=== PATIENT | female | born 1940 | race Caucasian/White ===

== ENCOUNTER 2019-10-13 11:20 | Outpatient (CLI) | payer MEDICARE | END 2019-10-13 23:59 | disposition home or self-care (01) | LOC: ROC 11:20 | PROVIDERS: ATTEND Radiology Radiation Oncology | DX: C50.919 Malignant neoplasm of unspecified site of unspecified female breast (principal) | CPT/HCPCS: G0463 ==

== ENCOUNTER 2019-11-07 21:30 | Observation (INO) | payer MEDICARE ==
[~2019-11-07] VITALS: Ht 162.6 cm; Wt 64.6 kg
--- NOTE | 2019-11-07 21:51 | NUR ---
79Y F BIB EMS FROM HOME, PT HAD SUDDEN ONSET OF ABD PAIN WITH ONE EPISODE OF LOOSE STOOL AND VOMITING. PT REPORTS GENERALIZED WEAKNESS WORSE THAN HER BASELINE WELL. PT FAMILY AT BEDSIDE DENIES RECENT ILLNESS. PT CONNECTED TO MONITORING TENISHA LOMBARDO
[2019-11-07] MEDS ORDERED: MAALOX/HYOSCYAMINE/LIDOCAINE 45 ML BTL ONE (21:59)
[2019-11-07] MEDS ORDERED: ONDANSETRON 2MG/ML, 2ML ONE (21:59)
[2019-11-07] MEDS: ONDANSETRON 2MG/ML, 2ML IVPush ONE ×2 (22:00→22:02)
[2019-11-07] MEDS: SODIUM CHLORIDE FLUSH 10ML SYR IVF ONE (22:00)
--- NOTE | 2019-11-07 22:00 | NUR ---
PT PLACED ON CONTACT PRECAUTIONS, PER PT REPORT OF LOOSE STOOL.
[2019-11-07 22:03] LABS: MEAN CORPUSCULAR HEMOGLOBIN 26.1 pg (27.0-34.8); MEAN CORPUSCULAR VOLUME 81.6 fL (80-100); MEAN PLATELET VOLUME 10.1 fL (7.4-10.4); PLATELET COUNT 285 x10^3/uL (130-400); RED BLOOD COUNT 5.45 x10^6/uL (3.82-5.3); RED CELL DISTRIBUTION WIDTH 17.1 % (9.6-15.2)
[2019-11-07] MEDS: MAALOX/HYOSCYAMINE/LIDOCAINE 45 ML BTL PO ONE ×2 (22:03→22:34)
[2019-11-07 22:09] LABS: ALANINE AMINOTRANSFERASE 24 U/L (12-78); ALBUMIN 4.2 g/dL (3.4-5.0); ANION GAP 8 mmol/L (5-15); CALCIUM 9.5 mg/dL (8.5-10.1); CHLORIDE 107 mmol/L (98-107); CREATININE 0.71 mg/dL (0.55-1.02)
[2019-11-07 22:12] LABS: ALKALINE PHOSPHATASE 73 U/L (45-117); BILIRUBIN,TOTAL 0.5 mg/dL (0.2-1.0); TOTAL PROTEIN 8.1 g/dL (6.4-8.2)
[2019-11-07 22:54] LABS: INTERNATIONAL NORMALIZED RATIO 4.44 (0.93-1.1)
[2019-11-07 22:55] LABS: BASOPHILS # (AUTO) 0.02 x10^3/uL (0-0.1); BASOPHILS % (AUTO) 0 % (0-1); EOSINOPHILS # (AUTO) 0.06 x10^3/uL (0-0.4); EOSINOPHILS % (AUTO) 0 % (1-7); LYMPHOCYTES # (AUTO) 0.97 x10^3/uL (1-3.4); LYMPHOCYTES % (AUTO) 4 % (22-44); MD SCAN; MONOCYTES # (AUTO) 2.02 x10^3/uL (0.2-0.8); MONOCYTES % (AUTO) 9 % (2-9); NEUTROPHILS # (AUTO) 19.72 x10^3/uL (1.8-6.8); NEUTROPHILS % (AUTO) 87 % (42-75)
[2019-11-07 22:58] LABS: PROTHROMBIN TIME 47.8 Seconds (9.6-11.5)
--- NOTE | 2019-11-07 23:00 | NUR ---
DUE TO PROLAPSE, UNABLE TO GET CLEAN SAMPLE. UPDATED
[2019-11-07] MEDS ORDERED: ANAS1TAB49 PO (23:27)
[2019-11-07] MEDS ORDERED: POTA10PI PO (23:28)
[2019-11-07] MEDS ORDERED: FURO20TA3 PO (23:28)
[2019-11-07] MEDS ORDERED: ONGLIZA PO (23:28)
[2019-11-07] MEDS ORDERED: ASCO1TAB2 PO (23:28)
[2019-11-07] MEDS ORDERED: DILT180C53 PO (23:28)
[2019-11-07] MEDS ORDERED: WARF2.5T32 PO (23:28)
[2019-11-07] MEDS ORDERED: LISI-167 PO (23:28)
[2019-11-07] MEDS ORDERED: UBID100C41 PO (23:28)
[2019-11-07] MEDS ORDERED: GLIM4TAB8 PO (23:28)
[2019-11-07] MEDS ORDERED: METF500T17 PO ×2 (23:28)
[2019-11-07] MEDS ORDERED: EMPA10TA PO (23:28)
[2019-11-07] MEDS ORDERED: CALCIUM (23:28)
[2019-11-07] MEDS ORDERED: ROSU40TA PO (23:28)
--- NOTE | 2019-11-07 23:49 | NUR ---
PT RESTING ON GUAWA, FAMILY AT BEDSIDE. NADN. AWAITNG ROOM UPSTAIRS
--- NOTE | 2019-11-07 23:57 | NUR ---
REPORT CALLED TO FLOOR RN ALL QUESTIONS ADDRESSED, PT READY FOR TRANSPORT TO FLOOR
[2019-11-08 00:30] VITALS: BP 135/67
[2019-11-08] MEDS: JARDIANCE MC SCH ×2 (01:00→09:00)
[2019-11-08] MEDS ORDERED: SODIUM CHLORIDE 0.9% 1,000 ML IV SCH (03:00)
[2019-11-08 05:43] VITALS: BP 132/76
[2019-11-08 08:34] VITALS: BP 151/83
[2019-11-08] MEDS ORDERED: DILTIAZEM CD 180 MG CAP.ER.24H PO SCH (09:00)
[2019-11-08] MEDS ORDERED: FUROSEMIDE 20 MG TABLET PO SCH (09:00)
[2019-11-08] MEDS ORDERED: TEMPLATE NON-FORMULARY MED. (Ubidecarenone** (Co Q-10**) 300 MG) PO SCH (09:00)
[2019-11-08] MEDS ORDERED: Empagliflozin (Jardiance) 10 MG) PO SCH (09:00)
[2019-11-08] MEDS ORDERED: GLIMEPIRIDE 4 MG TABLET PO SCH (09:00)
[2019-11-08] MEDS ORDERED: ANASTROZOLE 1 MG TABLET PO SCH (09:00)
[2019-11-08] MEDS ORDERED: POTASSIUM CHLORIDE 10 MEQ TABLET.ER PO SCH (09:00)
[2019-11-08] MEDS ORDERED: LINAGLIPTIN 5 MG TAB PO SCH (09:00)
[2019-11-08] MEDS ORDERED: LISINOPRIL 10 MG TABLET PO SCH (09:00)
[2019-11-08] MEDS ORDERED: metFORMIN 500 MG TABLET PO SCH (09:00)
[2019-11-08 11:27] LABS: ALANINE AMINOTRANSFERASE 22 U/L (12-78); ALBUMIN 3.8 g/dL (3.4-5.0); ANION GAP 9 mmol/L (5-15); CALCIUM 8.9 mg/dL (8.5-10.1); CHLORIDE 104 mmol/L (98-107); CREATININE 0.65 mg/dL (0.55-1.02)
[2019-11-08 11:30] LABS: ALKALINE PHOSPHATASE 68 U/L (45-117); BILIRUBIN,TOTAL 0.6 mg/dL (0.2-1.0); TOTAL PROTEIN 7.4 g/dL (6.4-8.2)
[2019-11-08 12:21] LABS: BASOPHILS # (AUTO) 0.04 x10^3/uL (0-0.1); BASOPHILS % (AUTO) 0 % (0-1); EOSINOPHILS % (AUTO) 1 % (1-7); LYMPHOCYTES # (AUTO) 1.86 x10^3/uL (1-3.4); LYMPHOCYTES % (AUTO) 16 % (22-44); MD NO; MEAN CORPUSCULAR HEMOGLOBIN 26.1 pg (27.0-34.8); MEAN CORPUSCULAR HGB CONC 31.5 g/dL (32.4-35.8); MEAN CORPUSCULAR VOLUME 82.9 fL (80-100); MEAN PLATELET VOLUME 9.8 fL (7.4-10.4); MONOCYTES % (AUTO) 9 % (2-9); NEUTROPHILS # (AUTO) 8.66 x10^3/uL (1.8-6.8); NEUTROPHILS % (AUTO) 74 % (42-75); PLATELET COUNT 292 x10^3/uL (130-400); RED BLOOD COUNT 5.04 x10^6/uL (3.82-5.3); RED CELL DISTRIBUTION WIDTH 17.6 % (9.6-15.2)
[2019-11-08 12:24] LABS: INTERNATIONAL NORMALIZED RATIO 4.1 (0.93-1.1); PROTHROMBIN TIME 44.1 Seconds (9.6-11.5)
[2019-11-08 13:49] VITALS: BP 125/74
[2019-11-08] MEDS ORDERED: LISI-167 PO (14:44)
[2019-11-08 15:13] VITALS: BP 137/77
[2019-11-08] MEDS ORDERED: ATORVASTATIN 80 MG TABLET PO SCH (21:00)
== END 2019-11-08 16:15 | disposition home or self-care (01) ==
LOC: ED 23:03 → INTOOBSV 23:50 → EDIP 23:50 → 4NW 11-08 00:34
PROVIDERS: ADMIT Internal Medicine; ATTEND Family Medicine
DX: A08.4 Viral intestinal infection, unspecified (principal); E86.0 Dehydration; D68.59 Other primary thrombophilia; I10 Essential (primary) hypertension; E78.5 Hyperlipidemia, unspecified; D72.829 Elevated white blood cell count, unspecified; E11.9 Type 2 diabetes mellitus without complications; Z79.01 Long term (current) use of anticoagulants; J96.11 Chronic respiratory failure with hypoxia; Z85.3 Personal history of malignant neoplasm of breast; Z88.0 Allergy status to penicillin; Z88.2 Allergy status to sulfonamides
CPT/HCPCS: 36415; 80053; 83690; 85025; 85610; 96361; 96374; 99284; G0378; J2405; J7030

== ENCOUNTER → 2019-12-10 | Outpatient (CLI) | payer MEDICARE ==
[~2019-12-10] MED LIST: ANAS1TAB49 PO; ASCO1TAB2 PO; CALCIUM; DILT180C53 PO; EMPA10TA PO; FURO20TA3 PO; GLIM4TAB8 PO; LISI-167 PO; METF500T17 PO; ONGLIZA PO; POTA10PI PO; ROSU40TA PO; UBID100C41 PO; WARF2.5T32 PO
== END | disposition home or self-care (01) ==
LOC: CFH 11:32
PROVIDERS: ATTEND Internal Medicine Medical Oncology
DX: C50.412 Malignant neoplasm of upper-outer quadrant of left female breast (principal); C50.111 Malignant neoplasm of central portion of right female breast; C50.911 Malignant neoplasm of unspecified site of right female breast; R91.8 Other nonspecific abnormal finding of lung field; J98.4 Other disorders of lung; N63.20 Unspecified lump in the left breast, unspecified quadrant
CPT/HCPCS: 71250; 76642

== ENCOUNTER → 2020-02-10 | Outpatient (CLI) | payer MEDICARE ==
[~2020-02-10] MED LIST changes: +OMNIPAQUE 350 MG/ML, 100ML BOTTLE ONE
== END | disposition home or self-care (01) ==
LOC: CFH 12:17
PROVIDERS: ATTEND Internal Medicine Medical Oncology
DX: I08.2 Rheumatic disorders of both aortic and tricuspid valves (principal); J98.4 Other disorders of lung; I10 Essential (primary) hypertension; E78.5 Hyperlipidemia, unspecified; E11.9 Type 2 diabetes mellitus without complications; Z85.41 Personal history of malignant neoplasm of cervix uteri
CPT/HCPCS: 71275; 93306; Q9967

== ENCOUNTER → 2020-10-18 | Outpatient (CLI) | payer MEDICARE ==
[~2020-10-18] MED LIST changes: -OMNIPAQUE 350 MG/ML, 100ML BOTTLE ONE
== END | disposition home or self-care (01) ==
LOC: CVU 12:03
PROVIDERS: ATTEND Internal Medicine Cardiovascular Disease
DX: I05.2 Rheumatic mitral stenosis with insufficiency (principal); R60.0 Localized edema; I05.8 Other rheumatic mitral valve diseases; I11.9 Hypertensive heart disease without heart failure; E11.9 Type 2 diabetes mellitus without complications; Z79.01 Long term (current) use of anticoagulants
CPT/HCPCS: 93306; 93970